=== PATIENT | female | born 1965 | race Caucasian/White ===

== ENCOUNTER → 2023-02-06 | Outpatient (CLI) | payer OTHER | LOC: LAB SHORT 13:44 → PLD 13:44 | DX: D26.0 Other benign neoplasm of cervix uteri (principal) | CPT/HCPCS: 88305 ==

== ENCOUNTER → 2024-10-04 | Outpatient (CLI) | payer OTHER ==
[2024-10-11 13:54] LABS: HPV HIGH RISK BY TMA Not Detected; HPV SOURCE Cervical/Vag
== END ==
LOC: LAB 13:50 → LAB SHORT 13:50
PROVIDERS: Obstetrics & Gynecology
DX: R10.2 Pelvic and perineal pain (principal)
CPT/HCPCS: 87624; G0123